=== PATIENT | female | born 1940 | race Native Hawaiian/Other Pacific Islander ===

== ENCOUNTER 2018-12-11 08:25 | Outpatient (CLI) | payer MEDICARE ==
[2018-12-11 08:49] LABS: Basophils # (Auto) 0.1 K/mm3 (0.0-0.1); Basophils % (Auto) 0.7 % (0.0-1.8); Eosinophils # (Auto) 0.2 K/mm3 (0.0-0.4); Eosinophils % (Auto) 1.6 % (0.0-4.3); Hematocrit 39.9 % (30.3-42.9); Hemoglobin 13.7 gm/dl (10.1-14.3); Lymphocytes # (Auto) 2.3 K/mm3 (1.2-5.4); Lymphocytes % (Auto) 23.6 % (13.4-35.0); Mean Corpuscular HGB Conc 34 % (30-34); Mean Corpuscular Volume 92 fl (79-97); Monocytes % (Auto) 10.2 % (0.0-7.3); Platelet Count 230 K/mm3 (140-440); Red Blood Count 4.33 M/mm3 (3.65-5.03); Red Cell Distribution Width 13.4 % (13.2-15.2)
[2018-12-11 09:18] LABS: BUN/Creatinine Ratio 24; Blood Urea Nitrogen 19 mg/dL (7-17); Calcium 9.1 mg/dL (8.4-10.2); Hemolysis Index 8
[2018-12-11 13:38] LABS: Creatinine,Urine TNR mg/dL (0.1-20.0); Protein/Creatinine Ratio,Urine TNR; Total Volume,Urine TNR ml
[2018-12-11 13:50] LABS: Creatinine,Urine 40.1 mg/dL (0.1-20.0); Microalbumin/Creatinine Ratio 82.2 ug/mg; Protein/Creatinine Ratio,Urine 0.3
== END 2018-12-11 08:26 | disposition home or self-care (01) ==
LOC: LAB 08:25
DX: I12.9 Hypertensive chronic kidney disease with stage 1 through stage 4 chronic kidney disease, or unspecified chronic kidney disease (principal); E11.22 Type 2 diabetes mellitus with diabetic chronic kidney disease; N18.3 Chronic kidney disease, stage 3 (moderate); R94.4 Abnormal results of kidney function studies
CPT/HCPCS: 36415; 80048; 82040; 82043; 82570; 84100; 84156; 85025